=== PATIENT | female | born 1995 | race Caucasian/White ===

== ENCOUNTER 2017-05-20 12:29 | Inpatient (IN) | payer OTHER ==
[2017-05-19 20:00] VITALS: BP 131/86
[~2017-05-20] VITALS: Ht 170.2 cm; Wt 58.1 kg
[~2017-05-20 12:29] MED LIST: BUPR100T5 PO; DICY20TA28 PO; DIVA500T2 PO; Gabapentin PO; HYDR-3895 PO; OMEG1CAP PO; QUET50TA PO
[2017-05-20] MEDS ORDERED: LORAZEPAM 2 MG/1 ML VIAL IM PRN (19:45)
[2017-05-20] MEDS ORDERED: diphenhydrAMINE 50 MG CAPSULE PO PRN (19:45)
[2017-05-20] MEDS ORDERED: MAG HYDROX/AL HYDROX/SIMETH 30 ML LIQUID UDC PO PRN (19:45)
[2017-05-20] MEDS ORDERED: ONDANSETRON ODT 4 MG TAB.RAPDIS SL PRN (19:45)
[2017-05-20] MEDS ORDERED: DICYCLOMINE HCL 20 MG TABLET PO PRN (19:45)
[2017-05-20] MEDS ORDERED: BUPRENORPHINE HCL 2 MG TAB.SUBL SL PRN (19:45)
[2017-05-20] MEDS ORDERED: LOPERAMIDE HCL 2 MG CAPSULE PO PRN ×2 (19:45)
[2017-05-20] MEDS ORDERED: ONDANSETRON 4 MG/2 ML VIAL IM PRN (19:45)
[2017-05-20] MEDS ORDERED: LORAZEPAM 1 MG TABLET PO PRN (19:45)
[2017-05-20] MEDS ORDERED: ACETAMINOPHEN 325 MG TABLET PO PRN (19:45)
--- NOTE | 2017-05-20 19:45 | NUR ---
Pre-admission assessment Patient is a 21-year old, female, seen at intake, AAOx4, no SOB and with mild anxiety noted at this time. Discussed with patient admission policies of the unit. Patient is coherent and able to respond to questions appropriately. Patient reported that he is homeless. Pt is ambulatory with steady gait. Pt reports that she was sober for 5 months and was living at [facility] in [place], [place]. She left the place on 05/11/2017 and relapsed on the same day. For the past 9 days, patient reports using Heroin IV daily, Meth IV for 5 times and Xanax PO twice. Vital signs taken and as follows: GU=716/87, P=106, O2 sat on RA=98%, RR=20, T=97.9. Pt verbalized instructions and teachings regarding disposal of narcotic and other controlled home meds, unit protocols such as taking of vital signs Q4H and handling and disposal of contraband.
[2017-05-20 20:00] LABS: *URINE HCG, QUAL NEGATIVE (NEGATIVE)
[2017-05-20 20:12] LABS: *AMPHETAMINE, URINE POSITIVE (NEGATIVE); *BARBITURATE, URINE NEGATIVE (NEGATIVE); *CANNABINOID, URINE NEGATIVE (NEGATIVE); *COCCAINE, URINE NEGATIVE (NEGATIVE); *OPIATE, URINE POSITIVE (NEGATIVE); *PHENCYCLIDINE SCREEN,URINE NEGATIVE (NEGATIVE)
[2017-05-20] MEDS ORDERED: SERT25TA PO (20:23)
--- NOTE | 2017-05-20 20:25 | NUR ---
ADMISSION Patient is a 21-year old, female, admitted and escorted by PLANER TAILER at 2006 to unit. Patient is able to verbalize needs. Patient verbalized that she was sober and living at [facility] for 5 months between November until May 11, 2017, the day when she relapsed. Skin check done, no open skin noted. Patient denies Suicidal Ideation nor Homicidal Ideation. No edema noted. Pt is ambulatory with steady gait. Pt stands 57" and weighs 128 pounds per standing scale. Vital signs are as follows: BP-134/85, T-98.0, P-101, RR-18 and SPO2 on RA=99%. Patient is AAOx4 and with mild anxiety noted at this time. Lung sounds clear bilaterally upon auscultation. No cough noted and bowel sounds are present on all quadrants. PERRLA and pupils are 2 mm upon visual check. Pt reports being allergic to Penicillins and Ibuprofen, on Regular Diet and is Full Code. Pt reports history of Anxiety, Depression, Bipolar Disorder Type II, Hep C Antibodies and Medical in the early part of 2016. 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 Per pt, withdrawal symptoms are hot and cold sweats, restless legs, insomnia, goosebumps and anxiety. Pt reports that she relapsed on 05/11/2017 and was kicked out of the sober living facility where she was at. Pt reports using these substances for the past 9 days: 1) Heroin 0.5 to 1 gm IV daily, last use was 05/20/2017 1100, 0.5 gm IV. 2) Methamphetamine 0.5 to 1 gm IV, 5 times in the past 9 days, last use was 05/19/2017, 0.5 gm IV. 3) Xanax PO for 2 times in the past 9 days: 1) 11/012mg PO and 2) 11/044mg PO. Patient verbalized the she did not use other substances since her relapse besides the one mentioned above. Home meds were reconciled. Patient reports no PCP. Psych MD is Dr. Britt. Patient reports smoking cigarettes, about 1/2 t 1 pack daily, preferably [employer]. Oriented patient to room and instructed with the use of the call light, placed within reach. Fall, universal, seizure and safety precautions implemented. No c/o pain at this time. All needs met. Information relayed to Dr. Baker. Patient refused PNA vaccine and Flu. COWS=8, CIWA=7. Will continue to monitor.
[2017-05-20] MEDS ORDERED: QUETIAPINE FUMARATE 25 MG TABLET PO ONE (21:00)
[2017-05-20] MEDS ORDERED: SERTRALINE HCL 50 MG TABLET PO ONE (21:00)
[2017-05-20 22:16] LABS: ALANINE AMINOTRANSFERASE 56 U/L (14-59); ALKALINE PHOSPHATASE 66 U/L (50-136); ASPARTATE AMINOTRANSFERASE 39 U/L (15-37); BILIRUBIN,TOTAL 0.7 mg/dL (0.2-1.0); CARBON DIOXIDE 27 mmol/L (21-32); CHLORIDE 98 mmol/L (98-107); CREATININE 0.7 mg/dL (0.6-1.3); GLUCOSE 82 mg/dL (74-106); MAGNESIUM 1.8 mg/dL (1.8-2.4); POTASSIUM 4.1 mmol/L (3.5-5.1); TOTAL PROTEIN, SERUM 8.9 g/dL (6.4-8.2); UREA NITROGEN, BLOOD 8 mg/dL (7-18)
[2017-05-20 22:18] LABS: ETHANOL < 3 MG/DL (0-0)
[2017-05-20 22:25] LABS: BASOPHILS % (AUTO) 0.1 % (0.0-2.0); EOSINOPHILS # (AUTO) 0.1 K/uL (0.0-0.7); EOSINOPHILS % (AUTO) 0.7 % (0.0-7.0); HEMOGLOBIN 14.1 G/DL (12.0-16.0); LYMPHOCYTES # (AUTO) 1.2 K/UL (0.8-4.8); LYMPHOCYTES % (AUTO) 7.8 % (20.5-51.5); MEAN CORPUSCULAR HEMOGLOBIN 29.7 UUG (27.0-31.0); MEAN CORPUSCULAR HGB CONC 34 g/dL (32.0-37.0); MEAN CORPUSCULAR VOLUME 86.1 FL (81.0-99.0); MONOCYTES # (AUTO) 1.1 K/UL (0.1-1.30); MONOCYTES % (AUTO) 6.9 % (0.0-11.0); NEUTROPHILS # (AUTO) 13.2 K/UL (1.8-8.9); NEUTROPHILS % (AUTO) 84.5 % (38.5-71.5); PLATELET COUNT (AUTO) 331 K/UL (150-450); RED BLOOD CELL COUNT(AUTO) 4.77 MIL/UL (4.2-5.4); WHITE BLOOD COUNT (AUTO) 15.6 K/UL (4.0-11.2)
[2017-05-20 23:05] LABS: LYMPHOCYTES % (MANUAL) 16 % (20-40); MONOCYTES % (MANUAL) 4 % (2-10); NEUTROPHILS % (MANUAL) 80 % (42-75)
[2017-05-21] VITALS: BP 94/52
--- NOTE | 2017-05-21 01:39 | NUR ---
PRN ROBAXIN ADMINISTRATION PATIENT C/O RIGHT UPPER EXTREMITY 11/19. PRN ROBAXIN GIVEN. WILL MONITOR FOR EFFECTIVENESS Addendum: 05/22/17 at 0327 by DAVID SERNA LVN ERROR: CHARTING
[2017-05-21 04:00] VITALS: BP 98/49
[2017-05-21] MEDS: METHOCARBAMOL 750 MG TABLET PO PRN ×2 (04:35→15:36)
--- NOTE | 2017-05-21 04:36 | NUR ---
RN note PRN Robaxin Pt c/o generalized muscles pain, lucho on the right upper arm=7/10. Administered Robaxin 750 mg PO. No SOB noted. Will reassess.
--- NOTE | 2017-05-21 05:35 | NUR ---
RN note reassess Pt verbalized muscle pain decreased to 3/10.
--- NOTE | 2017-05-21 07:08 | NUR ---
End of Shift Patient is a 21-year old, female, admitted for Heroin, Methamphetamine and Xanax Dependence. Patient is allergic to PCN and Ibuprofen, is Full Code and on Regular Diet. With history of Anxiety, Depression, Bipolar Disorder Type II, Medical in early 2017, Hep C Antibodies and Petit Mal Seizures until 11 years old. Pt is AAOx4, with no anxiety noted. No skin issues. Pt is ambulatory with steady gait. Fall, universal, seizure and safety prec in place. Call light within reach. Latest COWS=5 , CIWA=5 , slept for 4 hours . Endorsed to AM shift nurse for continuity of care.
[2017-05-21 08:00] VITALS: BP 122/66
[2017-05-21] MEDS: GABAPENTIN 300 MG CAPSULE PO SCH ×3 (08:33→17:27)
--- NOTE | 2017-05-21 08:33 | NUR ---
PRN TYLENOL Patient complained of headache and RUE pain 8/0. PRN tylenol given. will continue to monitor patient.
--- NOTE | 2017-05-21 08:34 | NUR ---
PPD SKIN TEST PPD skin test performed on LFA. To be read on 05/23/17.
[2017-05-21] MEDS: LORAZEPAM 1 MG TABLET PO PRN ×2 (08:42→17:37)
--- NOTE | 2017-05-21 08:42 | NUR ---
PRN ATIVAN Patient's CIWA = 5. Patient received PRN Ativan 1mg po . Will continue to monitor patient.
[2017-05-21] MEDS ORDERED: TUBERCULIN,PURIF.PROT.DERIV. 5 TU/0.1 ML TEST ID ONE (09:00)
--- NOTE | 2017-05-21 09:00 | NUR ---
START OF SHIFT Received report from directional driller nurse. Patient is 21 year old female admitted for medically supervised withdrawal from methamphetamine and xanax. Patient is full code with allergy to penicillin and ibuprofen. Patient is alert and oriented X4. On assessment this AM: CIWA: 5 and COWS: 6. Denies SOB, chest pain. Vitals signs WNL. Reports anxiety, chills, stomach cramps, body aches, and headache. Patient also complained of RUE pain, warm pack applied. Denies nausea, vomiting, tremors, tactile disturbance, auditory/visual hallucinations at this time. Noted forehead with dry scratch dyson and track dyson on her arms. Med compliant with AM meds. PRN Tylenol (for headache and RUE pain 03/22) and Ativan 1mg (CIWA = 5) given. Patient did not eat much of her breakfast. Patient was encouraged to attend group meetings today. Will continue to monitor patient.
--- NOTE | 2017-05-21 09:33 | NUR ---
REASSESSMENT PRN TYLENOL Patient reports headache resolved, pain 0/10 at this time, med effective. however, still feeling discomfort on RUE.
--- NOTE | 2017-05-21 09:42 | NUR ---
REASSESSMENT PRN ATIVAN Patient's CIWA = 3. Patient reports feeling better, med effective.
--- NOTE | 2017-05-21 11:38 | NUR ---
Therapist Prompted client to attend groups today and not isolate in his bedroom. Client refused to go to group.
[2017-05-21 12:00] VITALS: BP 107/83
[2017-05-21] MEDS: BUPRENORPHINE HCL 2 MG TAB.SUBL SL SCH ×2 (12:17→20:46)
--- NOTE | 2017-05-21 12:34 | NUR ---
R ARM SLING R arm sling placed on patient's R arm for support. Patient teaching provided, pt. verbalized understanding.
[2017-05-21] MEDS ORDERED: Medication Not On Formulary EA (Quetiapine Fumarate (Seroquel) 50 MG) PO PRN (15:00)
--- NOTE | 2017-05-21 15:39 | NUR ---
PRN Pt with c/o aches of right arm 02/19. Robaxin po prn per MD order given and tolerated well.
[2017-05-21] MEDS: CLONIDINE HCL 0.1 MG TABLET PO PRN (15:44)
--- NOTE | 2017-05-21 15:47 | NUR ---
PRN Pt very anxious. Not able to sit still in bed. Catapres po prn per MD order given and tolerated well.
[2017-05-21 16:00] VITALS: BP 128/88
--- NOTE | 2017-05-21 16:39 | NUR ---
PRN ROBAXIN Patient reports pain decreased to 5/10, mildly effective
--- NOTE | 2017-05-21 16:47 | NUR ---
REASSESSMENT PRN CLONIDINE Patient reports anxiety resolved.
[2017-05-21] MEDS ORDERED: KETOROLAC TROMETHAMINE 30 MG INJ IM PRN (17:15)
[2017-05-21] MEDS: NEOMY/BACITRAC/POLYMI OINT 28.35 GM TUBE TOP SCH (17:28)
--- NOTE | 2017-05-21 17:37 | NUR ---
PRN ATIVAN Patient's CIWA 10. PRN Ativan 1mg po tab given. Will continue to monitor patient.
[2017-05-21] MEDS: ACETAMINOPHEN ES 500 MG TABLET PO PRN (17:45)
--- NOTE | 2017-05-21 17:45 | NUR ---
PRN TYLENOL Patient complains of pain on RUE, 02/19. PRN tylenol given. Will continue to monitor patient.
--- NOTE | 2017-05-21 18:37 | NUR ---
REASSESSMENT PRN ATIVAN Patient's CIWA: 4. Med Effective
--- NOTE | 2017-05-21 18:45 | NUR ---
REASSESSMENT TYLENOL Patient's pain on RUE remains at 8/10 at this time, Md aware.
--- NOTE | 2017-05-21 19:03 | NUR ---
END OF SHIFT Received report from maintenance supervisor 2nd shift nurse. Patient is 21 year old female admitted for medically supervised withdrawal from methamphetamine and xanax. Patient is full code with allergy to penicillin and ibuprofen. Patient is alert and oriented X4. Most recent CIWA:4 and COWS 11. Patient reports anxiety, body aches, sweating, tremors. Complains of RUE pain, sling in place, unresolved with current pain meds, MD aware. Pending ultrasound on RUE to r/o DVT vs. abscess, left message with ultrasound to follow up. Compliant with routine meds during this shift. PRN Tylenol (for headache and RUE pain) and clonidine (for anxiety) given. Patient is able to tolerate meals about 50% without nausea or vomiting. security shift supervisor RN will continue to monitor patient. Addendum: 05/21/17 at 1924 by CHIN MAK RN Patient also using warm and ice packs on RUE, pt. states "they help."
[2017-05-21 20:00] VITALS: BP 117/88
--- NOTE | 2017-05-21 20:00 | NUR ---
START OF SHIFT NOTE RECEIVED REPORT FROM DAY SHIFT NURSE. PATIENT IS A 21 YEAR OLD FEMALE ADMITTED FOR HEROIN, METH AND XANAX DEPENDENCE. PATIENT IS ON 1ST DAY OF HER DAY 3 DAYS SUBUTEX TAPER. PATIENT IS ALLERGIC TO PENICILLIN AND IBUPROFEN. PATIENT REPORTS PMH OF ANXIETY, DEPRESSION, BIPOLAR D/O TYPE II , PETIT MAL SEIZURE UNTIL 11 Y/O AND MEDICAL 2016. PATIENT ON TRIPLE ANTIBIOTIC OINTMENT FOR SCABS ON FACE. ULTRASOUND ORDERED TO R/O DVT VS ABSCESS. ON SOFT RIGHT ARM SLING FOR SUPPORT. PATIENT WAS GIVEN PRN TYLENOL, ROBAXIN , CLONIDINE AND ATIVAN X 2. LAST COWS 6 AND COWS 11. RECEIVED PATIENT IN HER ROOM. PATIENT REPORTS ANXIETY, RESTLESS, SWEATING, FINE TREMORS, IRRITABLE AND C/O PAIN ON RIGHT UPPER EXTREMITY. NO N/V. DECREASED APPETITE. ENCOURAGE FLUIDS. ON FALL/SEIZURE PRECAUTION. SAFETY MEASURES IN PLACE. CALL LIGHT IN REACH. WILL CONTINUE TO MONITOR.
[2017-05-21] MEDS: DIVALPROEX 500 MG TABLET.DR PO SCH (20:44)
[2017-05-21] MEDS: SULFAMETH/TRIMETH 800/160 MG TABLET PO SCH (20:45)
[2017-05-21] MEDS ORDERED: Medication Not On Formulary EA (Sertraline Hcl (Zoloft) 1 TAB) PO SCH (21:00)
[2017-05-21] MEDS ORDERED: SERTRALINE HCL 50 MG TABLET PO SCH (21:00)
[2017-05-21] MEDS: QUETIAPINE FUMARATE 25 MG TABLET PO PRN (22:15)
[2017-05-21] MEDS: MIRALAX 17 GM POWD.PACK PO PRN (22:15)
--- NOTE | 2017-05-21 22:15 | NUR ---
PRN MIRALAX AND SEROQUEL ADMINISTRATION PATIENT REQUESTS FOR SLEEP AID AND LAXATIVE. PRN MIRALAX AND SEROQUEL ADMINISTRATION . WILL MONITOR FOR EFFECTIVENESS
--- NOTE | 2017-05-21 23:15 | NUR ---
PRN SEROQUEL RE-ASSESSMENT PATIENT ASLEEP AT THIS TIME. RESPIRATION EVEN AND UNLABORED. NO FACIAL GRIMACING. WILL CONTINUE TO MONITOR.
[2017-05-22] VITALS: BP 120/63
--- NOTE | 2017-05-22 | NUR ---
COWS/CIWA DEFERRED PATIENT SLEEPING. COWS/CIWA DEFERRED. RESPIRATION EVEN AND UNLABORED. SAFETY MEASURES IN PLACE. CALL LIGHT IN REACH. WILL CONTINUE TO MONITOR
[2017-05-22] MEDS: METHOCARBAMOL 750 MG TABLET PO PRN ×2 (01:39→16:08)
--- NOTE | 2017-05-22 01:39 | NUR ---
PRN ROBAXIN ADMINISTRATION PATIENT C/O RIGHT UPPER EXTREMITY 11/19. PRN ROBAXIN GIVEN. WILL MONITOR FOR EFFECTIVENESS
--- NOTE | 2017-05-22 02:39 | NUR ---
SIMONA DIAZ RE-ASSESSMENT PATIENT SLEEPING COMFORTABLY AT THIS TIME. NO FACIAL GRIMACING. RESPIRATION EVEN AND UNLABORED. SAFETY MEASURES IN PLACE. CALL LIGHT IN REACH. WILL CONTINUE TO MONITOR
--- NOTE | 2017-05-22 04:00 | NUR ---
COWS/CIWA DEFERRED PATIENT SLEEPING. COWS/CIWA DEFERRED. RESPIRATION EVEN AND UNLABORED. SAFETY MEASURES IN PLACE. CALL LIGHT IN REACH. WILL CONTINUE TO MONITOR
[2017-05-22] MEDS: ACETAMINOPHEN ES 500 MG TABLET PO PRN ×2 (05:38→16:08)
[2017-05-22] MEDS: CLONIDINE HCL 0.1 MG TABLET PO PRN (05:39)
--- NOTE | 2017-05-22 05:39 | NUR ---
PRN CLONIDINE AND TYLENOL ADMINISTRATION PATIENT WOKE ANXIOUS AND C/O PAIN ON RIGHT UPPER EXTREMITY. PATIENT WAS GIVEN CLONIDINE AND TYLENOL. WILL MONITOR FOR EFFECTIVENESS
--- NOTE | 2017-05-22 06:39 | NUR ---
PRN CLONIDINE AND TYLENOL RE-ASSESSMENT PATIENT IN BED ASLEEP. NO FACIAL GRIMACING. RESPIRATION EVEN AND UNLABORED. SAFETY MEASURES IN PLACE. CALL LIGHT IN REACH. WILL CONTINUE TO MONITOR
[2017-05-22 07:06] LABS: HEPATITIS B SURFACE AG Negative (Negative)
--- NOTE | 2017-05-22 07:29 | NUR ---
END OF SHIFT NOTE PATIENT IS A 21 YEAR OLD FEMALE ADMITTED FOR HEROIN, METH AND XANAX DEPENDENCE. PATIENT IS ON SUBUTEX TAPER, TOLERATED WELL, NO ADVERSE REACTION. PATIENT IS ALLERGIC TO PENICILLIN AND IBUPROFEN. ULTRASOUND ORDERED TO R/O DVT VS ABSCESS. ON SOFT RIGHT ARM SLING FOR SUPPORT. PATIENT WAS GIVEN PRN MIRALAX, CLONIDINE, SEROQUEL, TYLENOL AND ROBAXIN. ENCOURAGE FLUIDS. PATIENT COMPLIANT WITH MEDICATION AND TREATMENT PLAN. ON FALL/SEIZURE PRECAUTION. SAFETY MEASURES IN PLACE. CALL LIGHT IN REACH. WILL CONTINUE TO MONITOR. SLEPT 7 HOURS. FLUID INTAKE 1,500 ML. VOIDED X 2 . BM X 1. LAST COWS 7 AND CIWA 5.
[2017-05-22 08:00] VITALS: BP 95/64
--- NOTE | 2017-05-22 08:00 | NUR ---
START OF SHIFT NOTE 21 year old female, admitted 05/20/17 for Heroin, Meth and Xanax dependence and medical detox. Allergy to PCN and Motrin. History of anxiety, depression, bipolar disorder type II, Hepatitis C positive, petit mall seizure at age 11. Last COWS 7 and CIWA 5 at 8 pm. Slept 5 hours. PRN medications given on night were seroquel, miralax, robaxin, tylenol. Pending ultrasound of RUE to rule out DVT or abscess. 0800, pt alert to verbal, bed in low position and locked, side rails up x 2 and padded, call light within reach. Will continue to monitor.
[2017-05-22] MEDS ORDERED: BUPRENORPHINE HCL 2 MG TAB.SUBL SL SCH (09:00)
[2017-05-22] MEDS: SULFAMETH/TRIMETH 800/160 MG TABLET PO SCH ×2 (09:41→20:18)
[2017-05-22] MEDS: GABAPENTIN 300 MG CAPSULE PO SCH ×3 (09:41→17:40)
[2017-05-22] MEDS: NEOMY/BACITRAC/POLYMI OINT 28.35 GM TUBE TOP SCH ×2 (09:42→17:41)
[2017-05-22 12:00] VITALS: BP 97/53
[2017-05-22] MEDS ORDERED: LORAZEPAM 1 MG TABLET PO PRN ×2 (12:15)
[2017-05-22] MEDS ORDERED: LORAZEPAM 1 MG TABLET PO ONE (12:30)
[2017-05-22] MEDS: BUPRENORPHINE HCL 2 MG TAB.SUBL SL SCH ×3 (13:56→20:19)
--- NOTE | 2017-05-22 14:00 | NUR ---
BP monitor At 1330, BP 111/40. BP rechecked again and was 97/53. Discussed with Dr. Baker and approved pt receiving 1400 dose subutex.
--- NOTE | 2017-05-22 16:08 | NUR ---
PRN MEDICATION ADMINISTRATION Pt reported RUE pain after Surgeon LINING MECHANIC performed an aspiration of RUE abscess. Given Robaxin and Tylenol PRN's. Will reassess.
[2017-05-22 17:00] VITALS: BP 102/62
--- NOTE | 2017-05-22 17:08 | NUR ---
PRN MEDICATION REASSESSMENT Pt reports decrease in pain in RUE after receiving Robaxin and Tylenol PRN at 1608.
--- NOTE | 2017-05-22 19:13 | NUR ---
END OF SHIFT NOTE 21 year old female, admitted 05/20/17 for Heroin, Meth and Xanax dependence and medical detox. Allergy to PCN and Motrin. History of anxiety, depression, bipolar disorder type II, Hepatitis C positive, petit mall seizure at age 11. Ultrasound of RUE negative for DVT. Surgeon RIPRAP PLACING SUPERVISOR assessed Pt and performed and aspiration. Pending I+D. Given Tylenol and Robaxin PRN after aspiration for pain at site and medication was effective. BP 108/42 to 97/53 at 1230, Per Dr. Raphael was OK to administer scheduled Subutex dose at that time. Last COWS 5 and CIWA 4 at 1700. Report given to night RN. bed in low position and locked, side rails up x 2 and padded, call light within reach
--- NOTE | 2017-05-22 19:50 | NUR ---
START OF SHIFT Received report from day shift nurse. Pt attended a group meeting and returned to her room after. She is a 21 yo female admitted to [facility] on 05/20 for opiate dependence. She is A&O and ambulatory. Allergic to PCNs and ibuprofen. Pt is full code status and on a regular diet. She has PMH of hepatitis C, petit mal seizures until age 11, anxiety, depression, and bipolar. On admission she reported using heroin 0.5-1 gram per day, meth 0.5-1 gram per day, and Xanax on 05/13/17 and 05/16/17. Pt stated a modified Subutex taper on 05/21. She reports body aches, chills, anxiety, and stuffy nose. Pt has an abscess on the right upper arm that was evaluated by the FRUIT CHECKER today. Taper due tonight. Fall and seizure precautions in place. Bed is down with call light in reach.
[2017-05-22 20:00] VITALS: BP 125/65
[2017-05-22] MEDS: QUETIAPINE FUMARATE 25 MG TABLET PO PRN (20:18)
[2017-05-22] MEDS: DIVALPROEX 500 MG TABLET.DR PO SCH (20:18)
[2017-05-22] MEDS: SERTRALINE HCL 50 MG TABLET PO SCH (20:18)
--- NOTE | 2017-05-22 20:19 | NUR ---
PRN Seroquel Pt reports inability to sleep. PRN Seroquel administered.
[2017-05-23] VITALS: BP 100/58
--- NOTE | 2017-05-23 | NUR ---
0000 COWS and CIWA deferred COWS and CIWA ordered Q4HWA. Pt is lying in bed resting with eyes closed. Respirations even and unlabored. Vital signs obtained. Safety measures in place.
--- NOTE | 2017-05-23 04:00 | NUR ---
0400 Vitals refused/COWS and CIWA deferred Pt refused to be woken for 0400 vitals. She is lying in bed resting with eyes closed. Respirations even and unlabored. COWS and CIWA ordered Q4HWA. Safety measures in place.
--- NOTE | 2017-05-23 07:25 | NUR ---
END OF SHIFT Report provided to day shift nurse. Pt is lying in bed resting. She is a 21 yo female admitted to [facility] on 05/20 for opiate dependence. She is A&O and ambulatory. Allergic to PCNs and ibuprofen. Pt is full code status and on a regular diet. She has PMH of hepatitis C, petit mal seizures until age 11, anxiety, depression, and bipolar. On admission she reported using heroin 0.5-1 gram per day, meth 0.5-1 gram per day, and Xanax on 05/13/17 and 05/16/17. Pt stated a modified Subutex taper on 05/21. Last COWS 6 and CIWA 5 before meds. PRN Seroquel administered. She drank 1890mL and slept for 7 hours. Taper due tonight. Fall and seizure precautions in place. Bed is down with call light in reach.
--- NOTE | 2017-05-23 07:30 | NUR ---
Start of Shift Report from the night nurse: Pt is 21 y/o female here for Heroin, Methamphetamine & Xanax; 5 day Subutex and Ativan tapers ordered. Pt is a full code, regular diet allergic to PCN and Ibuprofen (rxn w/ nausea). HHx: Anxiety, Depression, bipolar, Hep C, Seizure un 11 t/y, surgical in 07/2016 and multiple relapses. Fall and seizure precautions ordered. V/S stable. Skin is not intact with Abscess on Rt Arm with Aspiration done 05/22 and order for Bactrim PO. PRN Seroquel given for sleep last night. Last COWS 6 CIWA 5. Pt is asleep in room. Will cont. to monitor the pt.
[2017-05-23 08:00] VITALS: BP 98/67
[2017-05-23] MEDS ORDERED: BUPRENORPHINE HCL 2 MG TAB.SUBL SL SCH (09:00)
[2017-05-23] MEDS: MIRALAX 17 GM POWD.PACK PO PRN (09:41)
[2017-05-23] MEDS: BUPRENORPHINE HCL 2 MG TAB.SUBL SL SCH ×3 (09:41→20:53)
[2017-05-23] MEDS: GABAPENTIN 300 MG CAPSULE PO SCH ×3 (09:42→15:41)
[2017-05-23] MEDS: SULFAMETH/TRIMETH 800/160 MG TABLET PO SCH ×2 (09:43→20:52)
[2017-05-23] MEDS: ACETAMINOPHEN ES 500 MG TABLET PO PRN (09:45)
--- NOTE | 2017-05-23 09:45 | NUR ---
PRN Medication Administration Pt is in room resting in bed and c/o FELIZ 4/10 pain, Nausea & no BM for more than 3 days; PRN Tylenol ES 1000mg , Zofran 4mg IM and Miralax given as ordered. Will reassess in 1H.
[2017-05-23] MEDS: NEOMY/BACITRAC/POLYMI OINT 28.35 GM TUBE TOP SCH ×2 (09:52→15:42)
--- NOTE | 2017-05-23 10:30 | NUR ---
Reassessment Pt is resting in bed & watching TV while eating breakfast, pt states that the FELIZ and Nausea are relieved, no BM at this time; Tylenol and Zofran are effective. Will cont. to monitor the pt.
[2017-05-23 12:00] VITALS: BP 92/62
[2017-05-23 16:00] VITALS: BP 105/52
--- NOTE | 2017-05-23 19:00 | NUR ---
End of Shift Report to the night nurse: Pt is 21 y/o female here for Opiates r/t Heroin 0.5mg IV daily, Methamphetamine 0.5mg-1g daily & Benzo r/t Xanax 2-4mg daily; 5 day Subutex and Ativan tapers ordered. Pt is a full code, regular diet allergic to PCN and Ibuprofen (rxn w/ nausea). HHx: Anxiety, Depression, Bipolar, Hep C, Seizure until 11 y/o, surgical in 07/2016 and multiple relapses. Fall and seizure precautions ordered. V/S stable. Skin is not intact with Abscess on Rt Arm with Aspiration done 05/22 and order for Bactrim PO & topical atbx. New Order for Xarelto to start tomorrow r/t Blood Clot in RUE at the site of the Abscess per dx procedure results. Last COWS 6 CIWA 4.
--- NOTE | 2017-05-23 19:30 | NUR ---
Start of Shift PAtient is a 21 year old female admitted to [facility] on 05/20/17 for opiate and benzo detox. She is on fall and seizure precaution. She has allergies to PCN and Ibuprofen. She is a full code and on a regular diet. She has abscess to R antecubital area, being treated with Bactrim. Patient is on a five day subutex taper. She has completed an ativan taper for benzo detox. Last CIWA 4, COWS 6. Vital signs have remained stable. At change of shift patient in bed. States she is just feeling tired. Safety measures in place. Bed locked and in lowest position with 2 side rails up for safety. Call light within reach. Report received from AM nurse
[2017-05-23 20:00] VITALS: BP 113/72
[2017-05-23] MEDS: SERTRALINE HCL 50 MG TABLET PO SCH (20:52)
[2017-05-23] MEDS: DIVALPROEX 500 MG TABLET.DR PO SCH (20:52)
[2017-05-23] MEDS: QUETIAPINE FUMARATE 25 MG TABLET PO PRN (21:03)
--- NOTE | 2017-05-23 21:03 | NUR ---
PRN medication Patient received Seroquel 50 mg PO at 2102 for complaints of inability to sleep. Effect pending
--- NOTE | 2017-05-23 22:03 | NUR ---
Reassessment of patient Patient received Seroquel 50 mg PO at 2102 for complaints of inability to sleep upon reassessment patient patient reports feeling sleepy, and falling asleep. Effectiveness noted.
[2017-05-23] MEDS ORDERED: MAGNESIUM CITRATE 296 ML BOTTLE PO PRN (22:15)
[2017-05-23] MEDS ORDERED: MAGNESIUM CITRATE 296 ML BOTTLE ONE (22:44)
[2017-05-24] VITALS: BP 112/53
--- NOTE | 2017-05-24 04:00 | NUR ---
Vital signs refused/ COWS & CIWA deferred 0400 vital signs refused. COWS & CIWA deferred for sleep.
--- NOTE | 2017-05-24 06:54 | NUR ---
End of Shift note Patient is a 21 year old female admitted to [facility] on 05/20/17 for opiate and benzo detox. She is on fall and seizure precaution. She has allergies to PCN and Ibuprofen. She is a full code and on a regular diet. She has an abscess to R antecubital area, being treated with Bactrim. Patient is on a five day subutex taper for opiate detox. She has completed an Ativan taper for benzo detox. Vital signs have remained stable. Vital signs at 2000 BP 113/72, P 84, R 16, SPO2 99% on RA, T 97.1. COWS 5 CIWA 3. Patient with complaints of constipation. Bowel sounds active all quadrants. Abdomen soft non tender. MD notified and ordered Citrate of magnesium. Patient states she did not want to take this at night and states she would prefer to take it in the AM. Patient encouraged to increase fluids, and patient also drinking prune juice. Seroquel 50 mg PO given at 2103 for insomnia with effectiveness noted. VS at 0000 BP 112/53, P 84, R 16, SPO2 98% on RA, T 97.7. COWS 3 CIWA 3. Patient slept a total of 6 hours. Intake 651ml. Output 2 voids[address] Safety measures in place. Bed locked and in lowest position with 2 side rails up for safety. Call light within reach. Report given to AM nurse.
--- NOTE | 2017-05-24 07:10 | NUR ---
Start of Shift Report from the night nurse: Pt is 21 y/o female here for Opiates r/t Heroin 0.5mg IV daily, Methamphetamine 0.5mg-1g daily & Benzo r/t Xanax 2-4mg daily; 5 day Subutex and Ativan tapers ordered. Pt is a full code, regular diet allergic to PCN and Ibuprofen (rxn w/ nausea). HHx: Anxiety, Depression, Bipolar, Hep C, Seizure until 11 y/o, surgical in 07/2016 and multiple relapses. Fall and seizure precautions ordered. V/S stable. Skin is not intact with Abscess on Rt Arm with Aspiration done 05/22 and order for Bactrim PO & topical atbx. PRN Seroquel for sleep last night. Last COWS 3 CIWA 3. Pt is asleep in room. Will cont. to monitor the pt.
[2017-05-24 08:00] VITALS: BP 92/62
[2017-05-24] MEDS ORDERED: BUPRENORPHINE HCL 2 MG TAB.SUBL SL SCH (09:00)
[2017-05-24] MEDS: NEOMY/BACITRAC/POLYMI OINT 28.35 GM TUBE TOP SCH ×2 (09:38→17:14)
[2017-05-24] MEDS: GABAPENTIN 300 MG CAPSULE PO SCH ×3 (09:38→17:00)
[2017-05-24] MEDS: ACETAMINOPHEN ES 500 MG TABLET PO PRN ×2 (09:39→21:27)
[2017-05-24] MEDS: SULFAMETH/TRIMETH 800/160 MG TABLET PO SCH ×2 (09:39→21:26)
--- NOTE | 2017-05-24 09:39 | NUR ---
PRN Medication Administration Pt c/o FELIZ 4/10 pain, RUE pain 6/10 r/t thrombus & no BM for more than 3 days; PRN Tylenol ES 1000mg and Magnesium Citrate 1 bottle given as ordered. Will reassess in 1H.
[2017-05-24] MEDS: RIVAROXABAN 15 MG TABLET PO SCH ×2 (09:42→17:13)
--- NOTE | 2017-05-24 10:40 | NUR ---
Reassessment Pt states that arm pain has decreased to 3/10, yet no BM at this time; Tylenol is somewhat effective. No BM at this time. Will cont. to monitor the pt.
[2017-05-24 12:00] VITALS: BP 96/58
--- NOTE | 2017-05-24 14:45 | NUR ---
Medication Non-Administration Pt is asleep in room and missed a dose of gabapentin due at 1300H.
[2017-05-24] MEDS ORDERED: ACET-2605 PO (15:42)
[2017-05-24] MEDS ORDERED: SULF1TAB3 PO (15:42)
[2017-05-24] MEDS ORDERED: METH-406 PO (15:42)
[2017-05-24] MEDS ORDERED: GABA-534 PO (15:42)
[2017-05-24] MEDS ORDERED: RIVA15TA PO (15:43)
[2017-05-24 16:00] VITALS: BP 93/53
--- NOTE | 2017-05-24 17:15 | NUR ---
Medication Non-Administration Pt refused the Gabapentin 300mg due at 1700H and states that she has a potential addiction problem to it and only wants one dose at night; Dr. Baker notified. Will cont. to monitor the pt.
--- NOTE | 2017-05-24 19:29 | NUR ---
End of Shift Report to night nurse: Pt is 21 y/o female here for Opiates r/t Heroin 0.5mg IV daily, Methamphetamine 0.5mg-1g daily & Benzo r/t Xanax 2-4mg daily; 5 day Subutex and Ativan tapers ordered. Pt is a full code, regular diet allergic to PCN and Ibuprofen (rxn w/ nausea). HHx: Anxiety, Depression, Bipolar, Hep C, Seizure until 11 y/o, surgical in 07/2016 and multiple relapses. Fall and seizure precautions ordered. V/S stable. Skin is not intact with Abscess adn thrombus on Rt Arm with Aspiration done 05/22 with orders for Xarelto, Bactrim PO & topical atbx. PRN Tylenol and Mag Citrate given during my shift. No BM during my shift. Pt refused gabapentin at 1300 and 1500pm; aware. Pt refused to attend group therapy and activities during my shift. New order for d/c tomorrow. Last COWS 3 CIWA 2.
--- NOTE | 2017-05-24 19:30 | NUR ---
Start of shift note Received report from day shift nurse. Pt is a 21 yo female, A+Ox4, presenting to [facility] for Opiate/Meth/Benzo dependence. Pt has Allergies to PCN and Ibuprofen, is on Full code status, and on Regular diet. Pt is on Fall and Seizure precautions. pt has HX of Hep C, Anxiety, Depression, Bipolar, and Seizure. Pt has completed 3 day Subutex taper, tolerated well, and is due for discharge tomorrow. No s/s of distress noted at this time. Respirations even and unlabored. Will continue to monitor.
[2017-05-24 20:40] VITALS: BP 111/61
[2017-05-24] MEDS: SERTRALINE HCL 50 MG TABLET PO SCH (21:26)
[2017-05-24] MEDS: DIVALPROEX 500 MG TABLET.DR PO SCH (21:27)
--- NOTE | 2017-05-24 21:27 | NUR ---
PRN Tylenol ES Pt c/o right arm pain 5/10 and requested for PRN Tylenol ES. Medication given and tolerated well. Will reassess within 1 HR. Will continue to monitor.
--- NOTE | 2017-05-24 22:20 | NUR ---
PRN Tylenol ES Reassessment Medication effective. Pt noted with pain 09/19. No s/s of ASE/distress noted at this time. Respirations even and unlabored. Will continue to monitor.
[2017-05-24] MEDS: QUETIAPINE FUMARATE 25 MG TABLET PO PRN (22:29)
--- NOTE | 2017-05-24 22:29 | NUR ---
PRN Seroquel Pt c/o inability to sleep and requested for PRN Seroquel. Medication given and tolerated well. Will reassess within 1HR. Will continue to monitor.
--- NOTE | 2017-05-24 23:20 | NUR ---
PRN Seroquel Reassessment Medication effective. Pt is resting well in bed. No s/s of ASE/distress noted at this time. Respirations even and unlabored. Will continue to monitor.
[2017-05-25 00:22] VITALS: BP 115/64
[2017-05-25 04:12] VITALS: BP 118/62
--- NOTE | 2017-05-25 06:53 | NUR ---
End of shift note Pt is a 21 yo female, A+Ox4, presenting to [facility] for Opiate/Meth/Benzo dependence. Pt has Allergies to PCN and Ibuprofen, is on Full code status, and on Regular diet. Pt is on Fall and Seizure precautions. pt has HX of Hep C, Anxiety, Depression, Bipolar, and Seizure. Pt has completed 3 day Subutex taper, tolerated well, and is due for discharge today. Pt was given PRN Tylenol @2126 and PRN Seroquel @2228. Pt slept for a total of 9 HRS. Last COWS: 2 and Last CIWA: 2 @0400. No s/s of distress noted at this time. Respirations even and unlabored. Will endorse to day shift nurse.
--- NOTE | 2017-05-25 07:05 | NUR ---
Start of Shift Endorsement received from nightshift nurse. PT is a 21 y/o female admitted for Heroin, Meth and Xanax dependence. Pt has been placed on a 3 day modified Subutex taper. Pt has completed the taper and has been scheduled to be discharged today 05/25/17. Pt is mildly withdrawing AEB COWS 2, CIWA 2 at 0400. Pt received PRN Tylenol and Seroquel. Pt reports sleeping 9 hours. All discharge education and documentation has been completed. Pt reports readiness for discharge. VS WNL. Full Code. PT is alert and oriented x4. Pt is in STABLE condition at this time. Remains compliant with medication and diet regimen. All needs have been met, All safety measures in place per hospital policy. Bed in lowest position, side rails up x2, call-light within reach. Will continue to monitor
[2017-05-25 08:00] VITALS: BP 90/61
[2017-05-25] MEDS: GABAPENTIN 300 MG CAPSULE PO SCH (08:37)
[2017-05-25] MEDS: SULFAMETH/TRIMETH 800/160 MG TABLET PO SCH (08:37)
[2017-05-25] MEDS: RIVAROXABAN 15 MG TABLET PO SCH (08:37)
[2017-05-25] MEDS: NEOMY/BACITRAC/POLYMI OINT 28.35 GM TUBE TOP SCH (08:38)
--- NOTE | 2017-05-25 09:27 | NUR ---
Discharge note PT has been discharged from [facility]. PT is in Stable condition, VS WNL. Denies suicidal and homicidal ideations at this time. . All documentation has been completed, paperwork signed and dated. Pt left with all of her belongings, medications and prescriptions. Pt has been discharged from [facility] on05/25/17 at 0927. has been Notified.
== END 2017-05-25 09:27 | disposition home or self-care (01) | DRG 895 ==
LOC: SRC 19:07
PROVIDERS: ADMIT Internal Medicine; ATTEND Internal Medicine
PROC: HZ2ZZZZ Detoxification Services for Substance Abuse Treatment (ICD-10-PCS; principal; 2017-05-20)
PROC: HZ31ZZZ Individual Counseling for Substance Abuse Treatment, Behavioral (ICD-10-PCS; 2017-05-21)
DX: F11.23 Opioid dependence with withdrawal (principal); E87.0 Hyperosmolality and hypernatremia; I82.621 Acute embolism and thrombosis of deep veins of right upper extremity; F15.20 Other stimulant dependence, uncomplicated; F31.60 Bipolar disorder, current episode mixed, unspecified; E87.1 Hypo-osmolality and hyponatremia; L02.413 Cutaneous abscess of right upper limb; L03.114 Cellulitis of left upper limb; Z91.89 Other specified personal risk factors, not elsewhere classified; Z81.1 Family history of alcohol abuse and dependence; Z82.5 Family history of asthma and other chronic lower respiratory diseases; Z80.8 Family history of malignant neoplasm of other organs or systems; F41.9 Anxiety disorder, unspecified; F17.210 Nicotine dependence, cigarettes, uncomplicated; Z79.899 Other long term (current) drug therapy; Z81.8 Family history of other mental and behavioral disorders; S51.031S Puncture wound without foreign body of right elbow, sequela; X78.8XXS Intentional self-harm by other sharp object, sequela; Z59.1 Inadequate housing; E86.1 Hypovolemia; F13.10 Sedative, hypnotic or anxiolytic abuse, uncomplicated; B18.2 Chronic viral hepatitis C
CPT/HCPCS: 36415; 80307; 80324; 80361; 83735; 84703; 85025; 86580; 86592; 86705; 86803; 87340; 87806; G0480; J2405